=== PATIENT | female | born 1990 | race Two or more races ===

== ENCOUNTER 2016-06-24 08:33 | Emergency (ER) | payer MEDICAID ==
[2016-06-24 09:17] LABS: HCG URINE NEGATIVE (NEGATIVE)
[2016-06-24 09:18] LABS: BASOPHILS 0.2 % (0.0-2.0); EOSINOPHILS 0.8 % (0-7); HEMATOCRIT 41.3 % (36.0-48.0); HEMOGLOBIN 13.6 g/dL (12-16); IMMATURE GRANULOCYTES 0.3 % (0-5); LYMPHOCYTES 17.9 % (15-50); MCH 29.6 pg (26.0-34.0); MCHC 32.9 g/dL (31.0-37.0); MCV 89.8 fL (80.0-100.0); MEAN PLATELET VOLUME 10.3 fL (7.4-10.4); MONOCYTES 4.7 % (2-11); NEUTROPHILS 76.1 % (40-80); PLATELET COUNT 299 10x3/uL (130-400); RDW 12.4 % (11.5-14.5); WBC 10.3 10x3/uL (4.8-10.8)
[2016-06-24 09:22] LABS: APPEARANCE CLEAR (CLEAR); BACTERIA FEW /hpf (NONE SEEN); BILIRUBIN NEGATIVE (NEGATIVE); COLOR YELLOW (YELLOW); GLUCOSE NEGATIVE (NEGATIVE); KETONE NEGATIVE (NEGATIVE); LEUKOCYTE ESTERASE TRACE (NEGATIVE); MUCUS <1+ /lpf (NONE SEEN); NITRITE NEGATIVE (NEGATIVE); PROTEIN NEGATIVE (NEGATIVE); SPECIFIC GRAVITY 1.005 (1.005-1.020); UROBILINOGEN NORMAL (NORMAL); WHITE CELLS - URINE OCC /hpf (0-5)
[2016-06-24 09:26] LABS: ALKALINE PHOSPHATASE 54 U/L (46-116); ALT (SGPT) 75 U/L (10-68); CALC OSMOLALITY 270 mosm/kg (275-300); CALCIUM 9.7 mg/dL (8.5-10.1); CARBON DIOXIDE 29.6 mmol/L (21.0-32.0); CHLORIDE - SERUM 101 mmol/L (98-107); CREATININE - SERUM 0.6 mg/dL (0.6-1.3); GLUCOSE 92 mg/dL (74-106); POTASSIUM - SERUM 4.2 mmol/L (3.5-5.1); PROTEIN - SERUM 7.7 g/dL (6.4-8.2); SODIUM 136 mmol/L (136-145); UREA NITROGEN 10 mg/dL (7-18); eGFR NON AFRICAN AMERICAN > 90 mL/min (90-120)
[2016-06-25 08:21] LABS: HEPATITIS C ANTIBODY <0.1 (0.0-0.9)
== END 2016-06-24 11:09 | disposition home or self-care (01) ==
LOC: D.ER 08:33
PROVIDERS: Emergency Medicine
DX: N39.0 Urinary tract infection, site not specified (principal); B19.20 Unspecified viral hepatitis C without hepatic coma

== ENCOUNTER → 2017-05-08 07:41 | Outpatient (CLI) | payer MEDICAID ==
[~2017-05-08 07:41] MED LIST: DOXYCYCLINE HY100 M2 PO; HYDROCODONE-APA1 TAB PO
[2017-06-02 06:59] VITALS: BMI 20.1
== END | disposition home or self-care (01) ==
LOC: D.US 07:41
DX: R10.9 Unspecified abdominal pain (principal)

== ENCOUNTER 2017-06-02 05:33 | Day surgery (SDC) | payer MEDICAID ==
[~2017-06-02] VITALS: Ht 162.6 cm; Wt 53.1 kg
--- NOTE | ~2017-06-02 | OP ---
PATIENT NAME: MOE LAWSON MEDICAL RECORD: [id number] :89 LOCATION:D.OPS ADMISSION DATE: SURGEON: MAXIMILIAN MCGUIRE MD DATE OF OPERATION: 06/02/2017 PREOPERATIVE DIAGNOSIS: Gallstones. POSTOPERATIVE DIAGNOSIS: Gallstones. PROCEDURE: Laparoscopic cholecystectomy. SURGEON: Maximilian Mcguire MD REPORT OF PROCEDURE: The patient's abdomen was prepped and draped in sterile fashion. A cutdown was made on the superior aspect of the umbilicus, 0 Vicryls were placed in the fascia bilaterally and the fascia was incised with 15-blade. I then bluntly entered the peritoneal cavity and placed a 12-mm Eloise port. Under direct visualization, a 5-mm trocar was placed in the epigastrium and two more 5-mm trocars were placed in the right subcostal region. The gallbladder was grasped and elevated. There was just mild inflammatory adhesions present. These were teased down carefully with blunt dissection. The cystic artery and cystic duct were dissected free and these were clipped proximally and distally and ligated in standard fashion. The gallbladder was then taken off the liver bed using electrocautery and placed in the right upper quadrant. We irrigated out the right upper quadrant and assured there was no sign of any bleeding or bile leakage. At this point, the ports and insufflation were then removed and the gallbladder was taken out through the umbilicus. The umbilical fascia was closed with interrupted 0 Vicryls times 3. The wounds were then irrigated out with normal saline and infused with 10 mL of 0.25% Marcaine with epinephrine. The skin incisions were all closed with subcutaneous 5-0 Monocryl and dressed appropriately. COMPLICATIONS: None. CONDITION: Stable. ANESTHESIA: General endotracheal and local. BLOOD LOSS: Minimal. 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
[2017-06-02 06:21] LABS: BASOPHILS 0.4 % (0-2); EOSINOPHILS 3.3 % (0-7); HEMATOCRIT 43.2 % (36.0-48.0); HEMOGLOBIN 14.3 g/dL (12-16); IMMATURE GRANULOCYTES 0.3 % (0-5); LYMPHOCYTES 33.8 % (15-50); MCH 29.8 pg (26.0-34.0); MCHC 33.1 g/dL (31.0-37.0); MEAN PLATELET VOLUME 10.3 fL (7.4-10.4); MONOCYTES 7.3 % (2-11); NEUTROPHILS 54.9 % (40-80); RDW 12.4 % (11.5-14.5)
[2017-06-02 06:23] LABS: PLATELET COUNT 375 10x3/uL (130-400)
[2017-06-02 06:47] LABS: CALC OSMOLALITY 275 mosm/kg (275-300); CALCIUM 9.8 mg/dL (8.5-10.1); CARBON DIOXIDE 26.3 mmol/L (21.0-32.0); CHLORIDE - SERUM 102 mmol/L (98-107); CREATININE - SERUM 0.6 mg/dL (0.6-1.3); GLUCOSE 84 mg/dL (74-106); POTASSIUM - SERUM 4.3 mmol/L (3.5-5.1); SODIUM 138 mmol/L (136-145); UREA NITROGEN 14 mg/dL (7-18); eGFR NON AFRICAN AMERICAN > 90 mL/min (90-120)
[2017-06-02] MEDS ORDERED: DOXYCYCLINE HY100 M2 PO (06:49)
[2017-06-02 06:59] VITALS: BP 110/70; Ht 162.6 cm; Wt 53.1 kg
[2017-06-02 07:40] LABS: HCG URINE NEGATIVE (NEGATIVE)
[2017-06-02] MEDS ORDERED: HYDROCODONE-APA1 TAB PO (09:12)
== END 2017-06-02 15:30 | disposition home or self-care (01) ==
LOC: D.OPS 05:33 → D.PAN 08:00 → D.OPS 15:30
PROVIDERS: Surgery
DX: K80.80 Other cholelithiasis without obstruction (principal); J45.909 Unspecified asthma, uncomplicated; Z01.812 Encounter for preprocedural laboratory examination

== ENCOUNTER 2017-06-04 10:40 | Emergency (ER) | payer MEDICAID ==
[2017-06-02 06:59] VITALS: BMI 20.1
[2017-06-04 12:11] LABS: BASOPHILS 0.2 % (0-2); EOSINOPHILS 1.5 % (0-7); HEMATOCRIT 40.1 % (36.0-48.0); HEMOGLOBIN 13.4 g/dL (12-16); IMMATURE GRANULOCYTES 0.1 % (0-5); LYMPHOCYTES 23.2 % (15-50); MCHC 33.4 g/dL (31.0-37.0); MCV 89.7 fL (80.0-100.0); MEAN PLATELET VOLUME 10.1 fL (7.4-10.4); MONOCYTES 6.6 % (2-11); NEUTROPHILS 68.4 % (40-80); PLATELET COUNT 301 10x3/uL (130-400); RBC 4.47 10x6/uL (4.00-5.40); RDW 12.4 % (11.5-14.5); WBC 9.2 10x3/uL (4.8-10.8)
[2017-06-04 12:13] LABS: CALC OSMOLALITY 274 mosm/kg (275-300); CALCIUM 9.7 mg/dL (8.5-10.1); CARBON DIOXIDE 28.7 mmol/L (21.0-32.0); CHLORIDE - SERUM 103 mmol/L (98-107); CREATININE - SERUM 0.5 mg/dL (0.6-1.3); GLUCOSE 92 mg/dL (74-106); POTASSIUM - SERUM 4.1 mmol/L (3.5-5.1); SODIUM 138 mmol/L (136-145); UREA NITROGEN 9 mg/dL (7-18); eGFR NON AFRICAN AMERICAN > 90 mL/min (90-120)
[2017-06-04 12:37] LABS: ALBUMIN 3.7 g/dL (3.4-5.0); ALKALINE PHOSPHATASE 98 U/L (46-116); ALT (SGPT) 340 U/L (10-68); BILIRUBIN - TOTAL 0.36 mg/dL (0.2-1.3); PROTEIN - SERUM 7.2 g/dL (6.4-8.2)
[2017-06-04 12:37] LABS: APPEARANCE CLEAR (CLEAR); BILIRUBIN NEGATIVE (NEGATIVE); COLOR YELLOW (YELLOW); GLUCOSE NEGATIVE (NEGATIVE); KETONE NEGATIVE (NEGATIVE); NITRITE NEGATIVE (NEGATIVE); PROTEIN NEGATIVE (NEGATIVE); SPECIFIC GRAVITY 1.005 (1.005-1.020); UROBILINOGEN NORMAL (NORMAL)
[2017-06-04 12:41] LABS: BACTERIA FEW /hpf (NONE SEEN); EPITHELIAL CELLS 0-5 /hpf (0-5); WHITE CELLS - URINE OCC /hpf (0-5)
[2017-06-04 12:44] LABS: MUCUS <1+ /lpf (NONE SEEN)
[2017-06-04 12:52] LABS: RED CELLS - URINE OCC /hpf (0-5)
== END 2017-06-04 18:20 | disposition home or self-care (01) ==
LOC: D.ER 10:40
PROVIDERS: Emergency Medicine
DX: R50.9 Fever, unspecified (principal); B19.10 Unspecified viral hepatitis B without hepatic coma

== ENCOUNTER → 2018-08-02 09:35 | Outpatient (CLI) | payer MEDICAID ==
[2017-06-02 06:59] VITALS: BMI 20.1
== END | disposition home or self-care (01) ==
LOC: D.LAB 09:35
PROVIDERS: ATTEND Internal Medicine Gastroenterology
DX: R19.7 Diarrhea, unspecified (principal)

== ENCOUNTER 2020-08-06 15:56 | Emergency (ER) | payer BC ==
[~2020-08-06] VITALS: Ht 160 cm; Wt 55.9 kg
[2020-08-06 16:17] VITALS: BP 129/79; Ht 160 cm; Wt 55.9 kg
[2020-08-06 16:53] LABS: BILIRUBIN NEGATIVE (NEGATIVE); KETONE NEGATIVE (NEGATIVE); NITRITE NEGATIVE (NEGATIVE); UROBILINOGEN NORMAL mg/dL (< 2)
[2020-08-06 17:22] LABS: BASOPHILS 0.4 % (0-2); EOSINOPHILS 1.2 % (0-7); HEMATOCRIT 39.3 % (36.0-48.0); HEMOGLOBIN 13.2 g/dL (12-16); IMMATURE GRANULOCYTES 0.4 % (0-5); LYMPHOCYTE ABS# 2.48 10x3/uL (1.18-3.74); LYMPHOCYTES 23.3 % (15-50); MCH 29.9 pg (26.0-34.0); MCHC 33.6 g/dL (31.0-37.0); MCV 89.1 fL (80.0-100.0); MEAN PLATELET VOLUME 9.6 fL (7.4-10.4); MONOCYTES 6.7 % (2-11); NEUTROPHIL ABS# 7.26 10x3/uL (1.56-6.13); PLATELET COUNT 300 10x3/uL (130-400); RBC 4.41 10x6/uL (4.00-5.40); RDW 12.4 % (11.5-14.5); WBC 10.7 10x3/uL (4.8-10.8)
[2020-08-06 17:28] LABS: CALC OSMOLALITY 269 mosm/kg (275-300); CALCIUM 9.2 mg/dL (8.5-10.1); CARBON DIOXIDE 29.2 mmol/L (21.0-32.0); CHLORIDE - SERUM 103 mmol/L (98-107); CREATININE - SERUM 0.7 mg/dL (0.6-1.3); GLUCOSE 90 mg/dL (74-106); POTASSIUM - SERUM 3.8 mmol/L (3.5-5.1); SODIUM 136 mmol/L (136-145); UREA NITROGEN 8 mg/dL (7-18); eGFR NON AFRICAN AMERICAN > 90 mL/min (90-120)
[2020-08-06 17:55] LABS: ALBUMIN 3.7 g/dL (3.4-5.0); ALKALINE PHOSPHATASE 80 U/L (30-120); ALT (SGPT) 94 U/L (10-68); BILIRUBIN - TOTAL 0.29 mg/dL (0.2-1.3); HCG - QUANTITATIVE (MATERNAL) 42047 mIU/mL; PROTEIN - SERUM 7.6 g/dL (6.4-8.2)
== END 2020-08-06 18:58 | disposition home or self-care (01) ==
LOC: D.ER 15:56
PROVIDERS: Family Medicine
DX: O26.891 Other specified pregnancy related conditions, first trimester (principal); R10.31 Right lower quadrant pain; M54.5 Low back pain; Z3A.08 8 weeks gestation of pregnancy